=== PATIENT | male | born 1965 | race Caucasian/White ===

== ENCOUNTER 2016-04-20 10:39 | Inpatient (IN) | payer BC ==
[2016-04-20 14:17] VITALS: BMI 19.8
--- NOTE | 2016-04-20 15:34 | HP ---
CIWA Score - CIWA Score Nausea/Vomitin-No Nausea/No Vomiting Muscle Tremors: 4-Moderate,w/Arms Extend Anxiety: 4-Mod. Anxious/Guarded Agitation: 4-Moderately Restless Paroxysmal Sweats: 1-Minimal Palms Moist Orientation: 0-Oriented Tacttile Disturbances: 3-Moderate Itch/Numb/Burn Auditory Disturbances: 0-None Visual Disturbances: 0-None Headache: 0-None Present CIWA-Ar Total Score: 16 Admission ROS BHS - HPI Chief Complaint: DETOX TX FOR ALCOHOL DEPENDENCE Allergies/Adverse Reactions: Allergies Allergy/AdvReac Type Severity Reaction Status Date / Time No Known Allergies Allergy Verified 04/20/16 14:26 History of Present Illness: 51 Y/O H/M WITH A HX OF ALCOHOL AND COCAINE DEPENDENCE SEEKING DETOX TX. Exam Limitations: No Limitations - Ebola screening Have you traveled outside of the country in the last 21 days: No Have you had contact with anyone from an Ebola affected area: No Have you been sick,other than usual withdrawal symptoms: No - Review of Systems Constitutional: Chills, Loss of Appetite, Night Sweats, Unintentional Wgt. Loss EENT: reports: Blurred Vision (WEARS GLASSES), Tearing, Nose Congestion, Dental Problems (MISSING TEETH) Respiratory: reports: No Symptoms reported GI: reports: Diarrhea, Nausea, Poor Appetite, Poor Fluid Intake, Vomiting : reports: No Symptoms Reported Musculoskeletal: reports: No Symptoms Reported Integumentary: reports: No Symptoms Reported Neuro: reports: Unsteady Gait Endocrine: reports: No Symptoms Reported Hematology: reports: No Symptoms Reported Psychiatric: reports: Orientated x3, Anxious Other Systems: Reviewed and Negative Patient History - Patient Medical History Hx Anemia: No Hx Asthma: No Hx Chronic Obstructive Pulmonary Disease (COPD): No Hx Cardiac Disorders: Yes (heart murmur) Hx Hypertension: No Hx Hypercholesterolemia: No HX Cerebrovascular Accident: No Hx Seizures: No Hx Diabetes: No Hx Gastrointestinal Disorders: No Hx Genitourinary Disorders: No Hx Sexually Transmitted Disorders: No Hx Renal Disease (ESRD): No Hx Thyroid Disease: No Hx Human Immunodeficiency Virus (HIV): No (NEGATIVE HX) Hx Hepatitis C: No Hx Depression: No Hx Suicide Attempt: No (DENIES) Hx Schizophrenia: No - Patient Surgical History Past Surgical History: No Hx Neurologic Surgery: No Hx Cataract Extraction: No Hx Cardiac Surgery: No Hx Lung Surgery: No Hx Breast Surgery: No Hx Breast Biopsy: No Hx Abdominal Surgery: No Hx Appendectomy: No Hx Cholecystectomy: No Hx Genitourinary Surgery: No Hx Orthopedic Surgery: No Anesthesia Reaction: No - PPD History Previous Implant?: Yes Documented Results: Positive w/o proof Implanted On Prior R Admission?: No Results: CXR TBD PPD to be Administered?: No - Reproductive History Patient is a Female of Child Bearing Age (11 -55 yrs old): No (MALE) - Smoking Cessation Smoking history: Current every day smoker Have you smoked in the past 12 months: Yes Aproximately how many cigarettes per day: 6 Hx Chewing Tobacco Use: No Initiated information on smoking cessation: Yes 'Breaking Loose' booklet given: 04/20/16 - Substance & Tx. History Hx Alcohol Use: Yes (BEER/WHISKEY) Hx Substance Use: Yes (COCAINE) Substance Use Type: Alcohol, Cocaine Hx Substance Use Treatment: Yes - Substances Abused Alcohol Route: Oral Frequency: Daily Amount used: 10 BEERS/ 1 PINT WHISKEY Age of first use: 19 Date of Last Use: 04/19/16 Cocaine Route: Inhalation Frequency: Daily Amount used: 2 BAGS Age of first use: 21 Date of Last Use: 04/19/16 Family Disease History - Family Disease History Family Disease History: Diabetes: Father, Other: Mother (HTN) Admission Physical Exam S - Vital Signs Vital Signs: Vital Signs - 24 hr 04/20/16 13:54 Temperature 97.5 F L Pulse Rate 67 Respiratory 18 Rate Blood Pressure 101/69 - Physical General Appearance: Yes: Moderate Distress, Thin, Anxious HEENTM: Yes: EOMI, Normocephalic, RON, Pharynx Normal Respiratory: Yes: Chest Non-Tender, Lungs Clear, Normal Breath Sounds, No Respiratory Distress Neck: Yes: Supple, Trachea in good position Breast: Yes: Breast Exam Deferred Cardiology: Yes: Regular Rhythm, Regular Rate, S1, S2 Abdominal: Yes: Normal Bowel Sounds, Non Tender, Flat, Soft Genitourinary: Yes: Other (N/C) Back: Yes: Within Normal Limits Musculoskeletal: Yes: full range of Motion, Gait Steady Extremities: Yes: Normal Range of Motion, Non-Tender 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, Fully Oriented, Alert Integumentary: Yes: Normal Color, Dry, Warm Lymphatic: Yes: Within Normal Limits - Diagnostic (1) Alcohol dependence with uncomplicated withdrawal Current Visit: Yes Status: Acute (2) Cocaine dependence, uncomplicated Current Visit: Yes Status: Acute (3) Methadone maintenance therapy patient Current Visit: Yes Status: Acute Cleared for Admission [facility] - Detox or Rehab [facility] Level of Care: Medically Managed Detox Regimen/Protocol: Librium S Breath Alcohol Content Breath Alcohol Content: 0 Urine Drug Screen - Results Drug Screen Negative: No Urine Drug Screen Results: SINAN-Cocaine, OPI-Opiates, MTD-Methadone, OXY- Oxycodone
[2016-04-20] MEDS ORDERED: ACETAMINOPHEN 325 MG TABLET (FP) PO PRN (15:51)
[2016-04-20] MEDS ORDERED: LOPERAMIDE HCL 2 MG CAPSULE PO PRN (15:51)
[2016-04-20] MEDS ORDERED: IBUPROFEN 400 MG TABLET (FP) PO PRN (15:51)
[2016-04-20] MEDS ORDERED: guaiFENesin/D-METHORPHAN HB 10 ML UNIT-DOSE CUPS PO PRN (15:51)
[2016-04-20] MEDS ORDERED: P-EPHED 60MG/TRIPROLIDI 2.5MG TABLET PO PRN (15:51)
[2016-04-20] MEDS ORDERED: MAGNESIUM HYDROX 2400MG/30ML ORAL SUSPENSION 30 ML CUP PO PRN (15:51)
[2016-04-20] MEDS ORDERED: hydrOXYzine PAMOATE 25 MG CAPSULE (FP) PO PRN (15:51)
[2016-04-20] MEDS ORDERED: MENTHOL/PHENOL 1 EACH UD MM PRN (15:51)
[2016-04-20] MEDS ORDERED: MAG HYDROX/AL HYDROX/SIMETH 30 ML UNIT-DOSE CUP PO PRN (15:51)
[2016-04-20] MEDS ORDERED: MAGNESIUM CITRATE 300 ML BOTTLE PO PRN (15:51)
[2016-04-20] MEDS ORDERED: NICOTINE POLACRILEX 2 MG GUM BC PRN (15:51)
[2016-04-20] MEDS ORDERED: chlordiazePOXIDE HCL 25 MG CAPSULE PO PRN (15:51)
[2016-04-20] MEDS: chlordiazePOXIDE HCL 25 MG CAPSULE PO SCH ×2 (17:22→22:17)
[2016-04-20] MEDS: NICOTINE 14 MG/24 HOURS TOPICAL PATCH TD SCH (17:23)
[2016-04-20] MEDS: THIAMINE HCL 100 MG TABLET (FP) PO SCH (22:17)
[2016-04-20] MEDS: diphenhydrAMINE HCL 50 MG CAPSULE PO PRN (22:17)
[2016-04-20 22:38] LABS: URINE APPEARANCE CLEAR; URINE BILIRUBIN NEGATIVE (NEGATIVE); URINE BLOOD NEGATIVE (NEGATIVE); URINE COLOR LTYELLOW; URINE GLUCOSE (UA) NEGATIVE (NEGATIVE); URINE KETONE NEGATIVE (NEGATIVE); URINE LEUK ESTERASE NEGATIVE (NEGATIVE); URINE NITRITE NEGATIVE (NEGATIVE); URINE PROTEIN NEGATIVE (NEGATIVE); URINE UROBILINOGEN NEGATIVE E.U./dl (0.2-1.0)
[2016-04-21] MEDS: chlordiazePOXIDE HCL 25 MG CAPSULE PO SCH ×4 (05:22→22:07)
[2016-04-21] MEDS: METHADONE HCL 40 MG DISPERSABLE TABLET PO SCH (05:22)
[2016-04-21 11:12] LABS: MCH 29.5 pg (25.7-33.7); MCHC 33.7 g/dl (32.0-35.9); MEAN CELL VOLUME 87.4 fl (80-96); MEAN PLT VOLUME 8.8 fl (7.5-11.1); PLATELET COUNT 240 K/MM3 (134-434); RDW 13.1 % (11.9-15.9); WHITE BLOOD COUNT 6.2 K/mm3 (4.0-10.0)
[2016-04-21 11:24] LABS: SICKLE CELL SCREEN NEGATIVE (NEGATIVE)
--- NOTE | 2016-04-21 11:32 | PN ---
S CIWA - CIWA Score Nausea/Vomitin Muscle Tremors: 3 Anxiety: 3 Agitation: 2 Paroxysmal Sweats: 3 Orientation: 0-Oriented Tacttile Disturbances: 2-Mild Itch/Numbness/Burn Auditory Disturbances: 1-Very Mild Visual Disturbances: 0-None Headache: 2-Mild CIWA-Ar Total Score: 18 BHS Progress Note (SOAP) Subjective: shakes, sweats, irritability Objective: 04/21/16 11:31 Vital Signs - 8 hr 04/21/16 04/21/16 04/21/16 06:30 07:57 11:00 Temperature 97.3 F L 97.5 F L Pulse Rate 50 L 51 L 56 L Respiratory 16 16 18 Rate Blood Pressure 96/55 101/61 98/59 Laboratory Last Values WBC 6.2 K/mm3 (4.0-10.0) 04/21/16 06:10 RBC 4.29 M/mm3 (4.00-5.60) 04/21/16 06:10 Hgb 12.6 GM/dL (11.7-16.9) 04/21/16 06:10 Hct 37.5 % (35.4-49) 04/21/16 06:10 MCV 87.4 fl (80-96) 04/21/16 06:10 MCHC 33.7 g/dl (32.0-35.9) 04/21/16 06:10 RDW 13.1 % (11.9-15.9) 04/21/16 06:10 Plt Count 240 K/MM3 (134-434) 04/21/16 06:10 MPV 8.8 fl (7.5-11.1) 04/21/16 06:10 Sickle Cell Screen Negative (NEGATIVE) 04/21/16 06:10 Urine Color Ltyellow 04/20/16 21:30 Urine Appearance Clear 04/20/16 21:30 Urine pH 6.0 (5.0-8.0) 04/20/16 21:30 Ur Specific Drums 1.021 (1.001-1.035) 04/20/16 21:30 Urine Protein Negative (NEGATIVE) 04/20/16 21:30 Urine Glucose (UA) Negative (NEGATIVE) 04/20/16 21:30 Urine Ketones Negative (NEGATIVE) 04/20/16 21:30 Urine Blood Negative (NEGATIVE) 04/20/16 21:30 Urine Nitrite Negative (NEGATIVE) 04/20/16 21:30 Urine Bilirubin Negative (NEGATIVE) 04/20/16 21:30 Urine Urobilinogen Negative E.U./dl (0.2-1.0) 04/20/16 21:30 Ur Leukocyte Esterase Negative (NEGATIVE) 04/20/16 21:30 UA noted, labs pending Assessment: 04/21/16 11:31 withdrawal sx Plan: continue detox
[2016-04-21 11:52] LABS: ALBUMIN 4.2 g/dl (3.4-5.0); ALK PHOS 124 U/L (45-117); ANION GAP 8 (8-16); BILIRUBIN,TOTAL 0.4 mg/dL (0.2-1.0); CALCIUM 8.9 mg/dL (8.5-10.1); CO2 28 mmol/L (21-32); CREATININE 1.1 mg/dL (0.7-1.3); GLUCOSE,RANDOM 76 mg/dL (74-106); SGOT/AST 31 U/L (15-37); SGPT/ALT 28 U/L (12-78); TOT PROT 7.2 g/dl (6.4-8.2)
[2016-04-21] MEDS: ASPIRIN 81 MG CHEWABLE TABLETS PO SCH (12:01)
[2016-04-21] MEDS: NICOTINE 14 MG/24 HOURS TOPICAL PATCH TD SCH (12:02)
[2016-04-21] MEDS: PRENATAL VITAMINS W/ FOLIC ACID TABLET (FP) PO SCH (12:02)
[2016-04-21] MEDS: THIAMINE HCL 100 MG TABLET (FP) PO SCH (22:07)
[2016-04-22] MEDS: chlordiazePOXIDE HCL 25 MG CAPSULE PO SCH ×2 (05:24→10:36)
[2016-04-22] MEDS: METHADONE HCL 40 MG DISPERSABLE TABLET PO SCH (05:24)
[2016-04-22] MEDS: ASPIRIN 81 MG CHEWABLE TABLETS PO SCH (10:36)
[2016-04-22] MEDS: PRENATAL VITAMINS W/ FOLIC ACID TABLET (FP) PO SCH (10:36)
[2016-04-22] MEDS: NICOTINE 14 MG/24 HOURS TOPICAL PATCH TD SCH (10:36)
[2016-04-22 14:07] LABS: HIV 1 & 2 AB NEGATIVE; HIV 1 AGp24 NEGATIVE
--- NOTE | 2016-04-22 14:26 | PN ---
S CIWA - CIWA Score Nausea/Vomitin Muscle Tremors: 4-Moderate,w/Arms Extend Anxiety: 4-Mod. Anxious/Guarded Agitation: 4-Moderately Restless Paroxysmal Sweats: No Perspiration Orientation: 0-Oriented Tacttile Disturbances: 1-Very Mild Itch/Numbness Auditory Disturbances: 0-None Visual Disturbances: 0-None Headache: 2-Mild CIWA-Ar Total Score: 18 BHS Progress Note (SOAP) Subjective: Anxious, sweating, interrupted sleep, nausea, tremor, headache Objective: 04/22/16 14:25 Last Vital Signs Temp Pulse Resp BP Pulse Ox 96.2 F L 67 20 107/69 04/22/16 11:33 04/22/16 11:33 04/22/16 11:33 04/22/16 11:33 Laboratory Tests 04/20/16 04/21/16 04/21/16 21:30 06:10 06:10 WBC 6.2 RBC 4.29 Hgb 12.6 Hct 37.5 MCV 87.4 MCHC 33.7 RDW 13.1 Plt Count 240 MPV 8.8 Sickle Cell Screen Negative Sodium 140 Potassium 4.4 Chloride 104 Carbon Dioxide 28 Anion Gap 8 BUN 20 H Creatinine 1.1 Creat Clearance w eGFR > 60 Random Glucose 76 Calcium 8.9 Total Bilirubin 0.4 AST 31 ALT 28 Alkaline Phosphatase 124 H Total Protein 7.2 Albumin 4.2 Urine Color Ltyellow Urine Appearance Clear Urine pH 6.0 Ur Specific [place] 1.021 Urine Protein Negative Urine Glucose (UA) Negative Urine Ketones Negative Urine Blood Negative Urine Nitrite Negative Urine Bilirubin Negative Urine Urobilinogen Negative Ur Leukocyte Esterase Negative RPR Titer HIV 1&2 Antibody Screen HIV P24 Antigen 04/21/16 04/21/16 06:10 08:00 WBC RBC Hgb Hct MCV MCHC RDW Plt Count MPV Sickle Cell Screen Sodium Potassium Chloride Carbon Dioxide Anion Gap BUN Creatinine Creat Clearance w eGFR Random Glucose Calcium Total Bilirubin AST ALT Alkaline Phosphatase Total Protein Albumin Urine Color Urine Appearance Urine pH Ur Specific [place] Urine Protein Urine Glucose (UA) Urine Ketones Urine Blood Urine Nitrite Urine Bilirubin Urine Urobilinogen Ur Leukocyte Esterase RPR Titer Nonreactive HIV 1&2 Antibody Screen Negative HIV P24 Antigen Negative Labs reviewed Assessment: 04/22/16 14:26 Withdrawal symptoms Plan: Continue detox
[2016-04-22] MEDS: chlordiazePOXIDE 5 MG CAPSULE PO SCH ×2 (17:11→22:14)
[2016-04-22] MEDS: THIAMINE HCL 100 MG TABLET (FP) PO SCH (22:14)
[2016-04-22] MEDS: diphenhydrAMINE HCL 50 MG CAPSULE PO PRN (22:15)
[2016-04-23] MEDS: METHADONE HCL 40 MG DISPERSABLE TABLET PO SCH (05:48)
[2016-04-23] MEDS: chlordiazePOXIDE 5 MG CAPSULE PO SCH ×2 (05:48→10:14)
[2016-04-23] MEDS: ASPIRIN 81 MG CHEWABLE TABLETS PO SCH (10:13)
[2016-04-23] MEDS: PRENATAL VITAMINS W/ FOLIC ACID TABLET (FP) PO SCH (10:13)
[2016-04-23] MEDS: NICOTINE 14 MG/24 HOURS TOPICAL PATCH TD SCH (10:14)
--- NOTE | 2016-04-23 10:46 | PN ---
BHS Progress Note (SOAP) Subjective: SWEATING,INTERRUPTED SLEEP,RESTLESS Objective: 04/23/16 10:45 Vital Signs - 8 hr 04/23/16 04/23/16 04/23/16 03:30 06:14 09:29 Temperature 97.1 F L 97.0 F L Pulse Rate 51 L 60 Respiratory 18 18 20 Rate Blood Pressure 95/62 93/64 Laboratory Tests 04/20/16 04/21/16 04/21/16 21:30 06:10 06:10 WBC 6.2 RBC 4.29 Hgb 12.6 Hct 37.5 MCV 87.4 MCHC 33.7 RDW 13.1 Plt Count 240 MPV 8.8 Sickle Cell Screen Negative Sodium 140 Potassium 4.4 Chloride 104 Carbon Dioxide 28 Anion Gap 8 BUN 20 H Creatinine 1.1 Creat Clearance w eGFR > 60 Random Glucose 76 Calcium 8.9 Total Bilirubin 0.4 AST 31 ALT 28 Alkaline Phosphatase 124 H Total Protein 7.2 Albumin 4.2 Urine Color Ltyellow Urine Appearance Clear Urine pH 6.0 Ur Specific [place] 1.021 Urine Protein Negative Urine Glucose (UA) Negative Urine Ketones Negative Urine Blood Negative Urine Nitrite Negative Urine Bilirubin Negative Urine Urobilinogen Negative Ur Leukocyte Esterase Negative RPR Titer HIV 1&2 Antibody Screen HIV P24 Antigen 04/21/16 04/21/16 06:10 08:00 WBC RBC Hgb Hct MCV MCHC RDW Plt Count MPV Sickle Cell Screen Sodium Potassium Chloride Carbon Dioxide Anion Gap BUN Creatinine Creat Clearance w eGFR Random Glucose Calcium Total Bilirubin AST ALT Alkaline Phosphatase Total Protein Albumin Urine Color Urine Appearance Urine pH Ur Specific [place] Urine Protein Urine Glucose (UA) Urine Ketones Urine Blood Urine Nitrite Urine Bilirubin Urine Urobilinogen Ur Leukocyte Esterase RPR Titer Nonreactive HIV 1&2 Antibody Screen Negative HIV P24 Antigen Negative LABS NOTED Assessment: 04/23/16 10:46 WITHDRAWAL SX. Plan: CONTINUE DETOX
--- NOTE | 2016-04-23 12:41 | EKG ---
Test Reason : Blood Pressure : / mmHG Vent. Rate : 054 BPM Atrial Rate : 054 BPM P-R Int : 144 ms QRS Dur : 098 ms QT Int : 480 ms P-R-T Axes : 000 012 010 degrees QTc Int : 455 ms SINUS BRADYCARDIA INCOMPLETE RIGHT BUNDLE BRANCH BLOCK BORDERLINE ECG NO PREVIOUS ECGS AVAILABLE Confirmed by KING BRISENO MD ([id number]) on 04/23/2016 12:41:15 PM Referred By: Confirmed By:KING BRISENO MD
[2016-04-23] MEDS: chlordiazePOXIDE HCL 10 MG CAPSULE PO SCH ×2 (17:45→22:35)
[2016-04-23] MEDS: THIAMINE HCL 100 MG TABLET (FP) PO SCH (22:34)
[2016-04-24] MEDS: METHADONE HCL 40 MG DISPERSABLE TABLET PO SCH (05:27)
[2016-04-24] MEDS: chlordiazePOXIDE HCL 10 MG CAPSULE PO SCH (05:29)
[2016-04-24] MEDS ORDERED: IBUPROFEN 400 MG TABLET (FP) PO PRN (07:14)
--- NOTE | 2016-04-24 09:28 | DS ---
[facility] Detox Discharge Summary Admission Date: 04/20/16 Discharge Date: 04/24/16 - History Present History: Alcohol Dependence, Cocaine Dependence, MMTP Additional Comments: NONE Pertinent Past History: HX HEART MURMUR--ASYMTOMATIC. - Physical Exam Results Vital Signs: Vital Signs Temperature 96.6 F L 04/24/16 06:38 Pulse Rate 57 L 04/24/16 06:38 Respiratory Rate 16 04/24/16 06:38 Blood Pressure 112/67 04/24/16 06:38 O2 Sat by Pulse Oximetry (%) Pertinent Admission Physical Exam Findings: WITHDRAWAL SX Laboratory Last Values WBC 6.2 K/mm3 (4.0-10.0) 04/21/16 06:10 RBC 4.29 M/mm3 (4.00-5.60) 04/21/16 06:10 Hgb 12.6 GM/dL (11.7-16.9) 04/21/16 06:10 Hct 37.5 % (35.4-49) 04/21/16 06:10 MCV 87.4 fl (80-96) 04/21/16 06:10 MCHC 33.7 g/dl (32.0-35.9) 04/21/16 06:10 RDW 13.1 % (11.9-15.9) 04/21/16 06:10 Plt Count 240 K/MM3 (134-434) 04/21/16 06:10 MPV 8.8 fl (7.5-11.1) 04/21/16 06:10 Sickle Cell Screen Negative (NEGATIVE) 04/21/16 06:10 Sodium 140 mmol/L (136-145) 04/21/16 06:10 Potassium 4.4 mmol/L (3.5-5.1) 04/21/16 06:10 Chloride 104 mmol/L (98-107) 04/21/16 06:10 Carbon Dioxide 28 mmol/L (21-32) 04/21/16 06:10 Anion Gap 8 (8-16) 04/21/16 06:10 BUN 20 mg/dL (7-18) H 04/21/16 06:10 Creatinine 1.1 mg/dL (0.7-1.3) 04/21/16 06:10 Creat Clearance w eGFR > 60 (>60) 04/21/16 06:10 Random Glucose 76 mg/dL (74-106) 04/21/16 06:10 Calcium 8.9 mg/dL (8.5-10.1) 04/21/16 06:10 Total Bilirubin 0.4 mg/dL (0.2-1.0) 04/21/16 06:10 AST 31 U/L (15-37) 04/21/16 06:10 ALT 28 U/L (12-78) 04/21/16 06:10 Alkaline Phosphatase 124 U/L (45-117) H 04/21/16 06:10 Total Protein 7.2 g/dl (6.4-8.2) 04/21/16 06:10 Albumin 4.2 g/dl (3.4-5.0) 04/21/16 06:10 Urine Color Ltyellow 04/20/16 21:30 Urine Appearance Clear 04/20/16 21:30 Urine pH 6.0 (5.0-8.0) 04/20/16 21:30 Ur Specific [place] 1.021 (1.001-1.035) 04/20/16 21:30 Urine Protein Negative (NEGATIVE) 04/20/16 21:30 Urine Glucose (UA) Negative (NEGATIVE) 04/20/16 21:30 Urine Ketones Negative (NEGATIVE) 04/20/16 21:30 Urine Blood Negative (NEGATIVE) 04/20/16 21:30 Urine Nitrite Negative (NEGATIVE) 04/20/16 21:30 Urine Bilirubin Negative (NEGATIVE) 04/20/16 21:30 Urine Urobilinogen Negative E.U./dl (0.2-1.0) 04/20/16 21:30 Ur Leukocyte Esterase Negative (NEGATIVE) 04/20/16 21:30 RPR Titer Nonreactive (NONREACTIVE) 04/21/16 06:10 HIV 1&2 Antibody Screen Negative 04/21/16 08:00 HIV P24 Antigen Negative 04/21/16 08:00 EKG=INCOMPLETE RBBB. BORDERLINE EKG - Treatment Hospital Course: Detox Protocol Followed, Detoxed Safely, Responded well, Discharged Condition Good Patient has Accepted a Rehab Referral to: REFUSED - Medication Discharge Medications: Ambulatory Orders NK [No Known Home Medication] 04/20/16 - Diagnosis (1) Alcohol dependence with uncomplicated withdrawal Current Visit: Yes Status: Acute (2) Cocaine dependence, uncomplicated Current Visit: Yes Status: Acute (3) Methadone maintenance therapy patient Current Visit: Yes Status: Chronic - AMA Did Patient Leave Against Medical Advice: No
[2016-04-24 09:44] VITALS: BP 107/68; PULSE 60; TEMP 97.2
== END 2016-04-24 09:49 | disposition home or self-care (01) | DRG 773 ==
LOC: YASAS 10:39 → Y3N 16:13
PROVIDERS: ADMIT Internal Medicine; ATTEND Internal Medicine
PROC: HZ2ZZZZ Detoxification Services for Substance Abuse Treatment (ICD-10-PCS; principal; 2016-04-20)
DX: F10.230 Alcohol dependence with withdrawal, uncomplicated (principal); F11.20 Opioid dependence, uncomplicated; F14.20 Cocaine dependence, uncomplicated; F17.210 Nicotine dependence, cigarettes, uncomplicated; I45.10 Unspecified right bundle-branch block; R01.1 Cardiac murmur, unspecified
CPT/HCPCS: 36415; 71020-TC; 80053; 81003; 85027; 85660; 86593; 87389; 93005; 93010